=== PATIENT | male | born 1950 | race Caucasian/White ===

== ENCOUNTER → 2016-07-26 | Outpatient (CLI) | payer OTHER ==
--- NOTE | ~2016-07-26 | US5 ---
[facility] A Service of [facility] & [facility] RADIOLOGY TEXT RESULTS PATIENT: ERICK PINEDA LOCATION: [facility] : 52 UNIT #: [id number] AGE: [address]: KINGA AGRAWAL SEX: M ORDER DR: [id number] [facility] [address] [place], [place] [address] [id number] O MR#: [id number] Acc #: [id number] NAME: ERICK PINEDA : 1950 SEX: M STUDY DATE/TIME: 07/26/2016 10:28 UNIT: [facility] ROOM: STUDY DESCRIPTION: US Abdominal Complete Attending Physician: Kinga Agrawal Referring Physician: Kinga Agrawal Ordering Physician: Physician Non-Staff Primary Care Physician: [facility] IMAGING REPORT This report is preliminary unless electronic signature is present EXAM Abdominal ultrasound. INDICATIONS Hepatitis C. Patient completed treatment for hepatitis C about a year ago. TECHNIQUE Botello-scale, color Doppler and spectral Doppler waveform analysis was performed through the abdomen. FINDINGS Patient's liver is homogeneous in echotexture and measures within normal size limits. I do not see any focal hepatic lesions. Inferior vena cava is patent. Abdominal aorta measures within normal size limits. Please note, proximal abdominal aorta cannot be seen due to overlying bowel gas. The pancreas is really not well seen due to overlying bowel gas. Gallbladder is normal in appearance with no stones or sludge seen. There is no gallbladder wall thickening or pericholecystic fluid. Right kidney is also normal in appearance with no solid or cystic renal masses seen. There is no hydronephrosis. There is no intra or extrahepatic biliary dilatation. Patient does have some calcified granulomata within the spleen. There is a cystic appearing structure seen within the left kidney. On prior study, it measured up to 3.1 x 2.6 x 2.4 cm. On today's exam, it is measuring up to 3.9 x 2.6 x 1.8 cm. I am uncertain if this has truly increased in size or simply due to differences in technique, but I do not clearly identify this cyst on the prior exam from April 2008. IMPRESSION 1. Normal appearance of the liver. No focal hepatic lesions are seen and there is no intra or extrahepatic biliary dilatation. 2. This patient has a cystic structure within the left kidney. I suspect this is just a benign renal cyst, but it does appear to measure larger than on the prior study from 2015 and I do not clearly STS. [facility] A Service of [facility] & [facility] RADIOLOGY TEXT RESULTS PATIENT: ERICK PINEDA LOCATION: [facility] : 52 UNIT #: [id number] AGE: [address]: KINGA AGRAWAL SEX: M ORDER DR: identify this on the prior study from April 2008. Again, while this is favored to represent a benign renal cyst; I would suggest further evaluation with renal protocol CT or MRI. Dictated by... Raina Crenshaw M.D. THIS IS AN ELECTRONICALLY VERIFIED REPORT Raina Crenshaw M.D. at 07/27/2016 4:32 PM AFF/pc TD: 07/27/2016 08:33 JOB #: [id number] MEDICAL IMAGING REPORT Page 1 of 1 COPY
== END | disposition home or self-care (01) ==
LOC: CGUS 09:56
DX: B18.2 Chronic viral hepatitis C (principal)
CPT/HCPCS: 76700